=== PATIENT | male | born 1955 | race Caucasian/White ===

== ENCOUNTER 2017-01-26 12:15 | Inpatient (IN) ==
[2017-01-26 13:04] LABS: Basophils % 0.4 % (0.0-0.8); Eosinophils # 0.2 10*3/uL (0.0-0.87); Eosinophils % 1.5 % (0.00-10.9); Hematocrit 46.5 VOL% (42.0-52.0); Hemoglobin 16.1 GM/DL (14.0-18.0); Immature Granulocytes % 0.4 %; Immature Granulocytes Absolute 0.04 #; Lymphocytes # 3.6 10*3/uL (1.4-4.0); Lymphocytes % 32.5 % (21.2-54.2); Mean Corpuscular HGB Conc 34.6 GM/DL (32-36); Mean Corpuscular Hemoglobin 32 PG (27-34); Mean Corpuscular Volume 92.6 FL (87-102); Mean Platelet Volume 10.5 FL (9.6-12.0); Monocytes # 0.9 10*3/uL (0.11-0.8); Monocytes % 8.3 % (1.7-12.7); Neutrophils # 6.2 10*3/uL (1.4-7.4); Neutrophils % 56.9 % (38.7-73.9); Platelet Count 147 T/CUMM (130-400); Red Blood Count 5.02 MC/CUMM (3.8-5.5); Red Cell Distribution Width 13.7 % (9.3-17.3)
--- NOTE | 2017-01-26 13:12 | EKG Report ---
Stationary ECG Study [facility] Test Date: 01/26/2017 1:07:11 PM Pat Name: YULIYA POLLARD Department: Room: Gender: M Ware[employer] Order Picker: : 1955 Requested by: Crystal Mckinney Order Number: [id number] Reading MD: JACOB RIVAS Intervals [place] Rate: 71 P: 62 PA: 142 QRS: 43 QRSD: 89 T: 74 QT: 351 QTc: 374 Interpretive Statements SINUS RHYTHM Electronically Signed On 01-26-17 14:07:50 CDT by JACOB RIVAS [email or web address]
[2017-01-26 13:19] LABS: Albumin 3.4 G/DL (3.4-5.0); Calcium 8.6 MG/DL (8.5-10.1); Osmolality,Calculated 275.5 MOS/KG (273-304); Potassium 4.1 MMOL/L (3.5-5.1); Total Protein 7.2 G/DL (6.4-8.3)
[2017-01-26] MEDS ORDERED: ALBUTEROL/IPRATROPIUM 3 ML NEB RESP TX STA (13:30)
--- NOTE | 2017-01-26 13:30 | XRay Report ---
2 view chest January 26, 2017 Indication: Shortness of breath Comparison CT performed on May 24, 2014 and prior chest radiograph May 05, 2015 Findings: Cardiomediastinal contours are within normal limits. Chemotherapy port remains in satisfactory position. Lungs are clear bilaterally. No acute osseous abnormalities. Impression: No acute cardiopulmonary findings PROCEDURE INTERPRETED AT [facility] DEPARTMENT OF RADIOLOGY Final Report Signed by: Faisal Machuca
--- NOTE | 2017-01-26 15:13 | CT Report ---
CT chest pulmonary embolism January 26, 2017 at 1431 hours Indication: Chest pain, shortness of breath, history of lymphoma Comparison: None available Technique: Axial CT imaging of the chest is performed with intravenous contrast. Contrast dose is 80 cc of Omnipaque 350. Findings: Chest: No thrombus or other abnormality is identified in the pulmonary arteries or veins. The pulmonary vessel caliber is within normal limits. The heart and great vessels appear within normal limits. Marked increase in number and size of bilateral cervical, supraclavicular, axillary, mediastinal and hilar lymph nodes. Patchy consolidation developing within the posterior left lung base. Remaining lung parenchyma is well aerated. No effusion or pneumothorax is present. Visualized abdomen: Spleen is enlarged. Prominent retroperitoneal and mesenteric adenopathy is present throughout the upper abdomen. Impression: 1. No evidence of pulmonary embolism 2. Developing left basilar pneumonia 3. Marked adenopathy and splenomegaly, appearance highly concerning for lymphoma recurrence. This CT exam was performed using one or more the following dose reduction techniques: Automated exposure control, adjustment of the MA and/or KV according to patient size, or use of iterative reconstruction technique. PROCEDURE INTERPRETED AT [facility] DEPARTMENT OF RADIOLOGY Final Report Signed by: Faisal Machuca
[2017-01-26] MEDS ORDERED: LEVOFLOXACIN INJ 750 MG in PREMIX 1 EACH IV STA (15:52)
--- NOTE | 2017-01-26 16:07 | Emergency Department Note ---
Arrival - Arrival Chief Complaint: Upper Respiratory Stated Complaint: upper respiratory,congestion ED Nursing Triage Note: 4-WEEK HX OF NSAL KIOLATZD-[id number]-E/O MILD SOB OVER LAST FEW DAYS-A/OX3 NO RESP DISTRESS NOTED Mode of Arrival: Ambulatory Source: Patient Time Seen by Provider: 01/26/17 13:01 - History of Present Illness HPI Narrative: 61 y/o white male presents to the ER complaining of dyspnea, cough, and nasal congestion. Symptoms started four weeks ago. Reports fatigue and dyspnea with exertion. Patient has completed a Z-pack two weeks ago with little results. Past medical history significant for CLL- remission and hernia repair. Past medical history significant for Dr. De Santiago. Oncologist: Dr. Sauer. Onset (ago): week(s) (4) Severity: mild Allergies/Adverse Reactions: Allergies Allergy/AdvReac Type Severity Reaction Status Date / Time No Known Allergies Allergy Verified 05/05/15 10:01 Home Medications: Home Medications Medication Instructions Recorded Confirmed Type Gabapentin 300 mg PO TID 09/28/14 05/05/15 History Omeprazole 40 mg PO DAILY 09/28/14 05/05/15 History Oxycodone HCl/Acetaminophen 1 each PO Q6H PRN 09/28/14 05/05/15 History [Percocet 10-325 mg Tablet] Vitamin B Complex 1 each PO DAILY 09/28/14 05/05/15 History Fentanyl [Fentanyl 25 mcg/hr Patch] 25 mcg TRANSDERM Q3DAY PRN 09/29/14 History predniSONE TAB 20 mg PO DIRECTED 09/29/14 05/05/15 History Review of System - Review of System 12 point system: reviewed and no additional remarkable complaints except as stated - Review of System Constitutional: Present: other (faigue ) Head/Ears/Nose/Throat: Present: nasal drainage Respiratory: Present: cough Neurological: Present: headache Hematological/Lymphatic: Present: lymphadenopathy Medical,Surgical,& Family Hx - Medical History Neurology: No history of: Seizures Gastrointestinal: History of: GERD Hematology: History of: Hematologic Cancer (LYMPHATIC LEUKEMIA) - Surgical History Abdominal Surgeries: Patient denies: Abdominal Surgery - Family History Family History: Reports;: Family Cancer (MOTHER-OVARIAN, BROTHER MYLOMA) - Social History Smoking Status: Smoker, status unknown Exam Vital Signs: Vital Signs Temperature 98.6 F 01/26/17 13:03 Pulse Rate 77 09/02/17 14:05 Respiratory Rate 18 01/26/17 14:05 Blood Pressure 133/74 01/26/17 13:03 O2 Sat by Pulse Oximetry 95 01/26/17 14:05 - General General appearance: alert, in no apparent distress - ENT ENT exam: Present: normal oropharynx, mucous membranes moist, other (rhinorrhea ) - Neck Neck exam: Present: lymphadenopathy - Chest Chest inspection: Present: normal inspection - Respiratory Respiratory exam: Present: rhonchi (LLL) - Cardiovascular Cardiovascular exam: Present: regular rate, normal rhythm, normal heart sounds - Abdominal Exam Abdominal exam: Present: soft, normal bowel sounds. Absent: tenderness - Extremities Exam Extremities exam: Present: normal inspection, full ROM - Neurological Exam Neurological exam: Present: alert, oriented X3 - Psychiatric Psychiatric exam: Present: normal affect, normal mood - Skin Skin exam: Present: warm, dry Course Course Narrative: Levaquin 750mg IV given in ER. - Consultations Consultation #1: Dr. Us Time: 16:20 (Will admit to Dr. Us ) Results - Labs CBC & BMP: 01/26/17 12:51 01/26/17 12:51 Lab Results: I have reviewed the patients labs - Diagnostic Findings Procedure: CT - chest: image reviewed by me, report reviewed by me (1. no evidence of PE 2. developing left bvasilar pneumonia 3. marked adenopathy and splenomegaly, apperance highly concerning for lymphoma recurrence ), X-ray: image reviewed by me, report reviewed by me (CXR: no acute abnormality ) Disposition Clinical Impression: Pneumonia, Lymphadenopathy Case discussed with: patient Disposition: Disch To Home/Self Care Condition: Stable
[2017-01-26] MEDS ORDERED: ACETAMINOPHEN 325 MG TABLET PO PRN ×2 (16:31→18:41)
[2017-01-26] MEDS ORDERED: IBUPROFEN 600 MG TABLET PO PRN (16:31)
[2017-01-26] MEDS ORDERED: ONDANSETRON 4 MG/2 ML VIAL IV PRN ×2 (16:31→18:41)
[2017-01-26] MEDS: SODIUM CHLORIDE 0.9% 1,000 ML IV SCH (19:58)
[2017-01-26] MEDS: GABAPENTIN 600 MG TABLET PO SCH (20:11)
[2017-01-26] MEDS: DOCUSATE SODIUM 100 MG CAPSULE PO SCH (20:11)
[2017-01-26] MEDS ORDERED: DOCUSATE SODIUM 100 MG CAPSULE PO SCH (21:00)
[2017-01-27] MEDS: SODIUM CHLORIDE 0.9% 1,000 ML IV SCH ×3 (03:58→20:43)
[2017-01-27] MEDS: ALBUTEROL/IPRATROPIUM 3 ML NEB RESP TX PRN ×2 (04:19→11:38)
[2017-01-27 04:26] LABS: Basophils % 0.5 % (0.0-0.8); Eosinophils # 0.2 10*3/uL (0.0-0.87); Eosinophils % 2.8 % (0.00-10.9); Hematocrit 42.8 VOL% (42.0-52.0); Hemoglobin 14.3 GM/DL (14.0-18.0); Immature Granulocytes % 0.2 %; Immature Granulocytes Absolute 0.02 #; Lymphocytes % 36.6 % (21.2-54.2); Mean Corpuscular HGB Conc 33.4 GM/DL (32-36); Mean Corpuscular Hemoglobin 32 PG (27-34); Mean Corpuscular Volume 94.9 FL (87-102); Mean Platelet Volume 10.9 FL (9.6-12.0); Monocytes % 11.8 % (1.7-12.7); Neutrophils # 3.9 10*3/uL (1.4-7.4); Neutrophils % 48.1 % (38.7-73.9); Platelet Count 127 T/CUMM (130-400); Red Blood Count 4.51 MC/CUMM (3.8-5.5); Red Cell Distribution Width 13.8 % (9.3-17.3); White Blood Count 8.1 T/CUMM (4-12)
[2017-01-27 04:52] LABS: Magnesium 2.3 MG/DL (1.8-2.4); Potassium 3.8 MMOL/L (3.5-5.1)
[2017-01-27 04:55] LABS: Risk Ratio 4.97; VLDL CHOLESTEROL 24.2 MG/DL
[2017-01-27 05:49] LABS: Apearance,Urine CLEAR (Clear); Bilirubin,Urine Negative (Negative); Blood, Urine Negative (Negative); Glucose,Urine (UA) Negative (Negative); Ketones,Urine Negative (Negative); Nitrite,Urine Negative (Negative); Protein,Urine Negative; RBC,Urine <1 /HPF (0-4); Urine Color Yellow (Yellow); Urine Specific Gravity 1.014 (1.001-1.035); WBC,Urine <1 /HPF (0-6)
[2017-01-27] MEDS ORDERED: PANTOPRAZOLE 40 MG TABLET PO SCH (09:00)
[2017-01-27] MEDS ORDERED: ALPHA LIPOIC ACID 100 MG PO SCH (09:00)
[2017-01-27] MEDS: LEVOFLOXACIN INJ 750 MG in PREMIX 1 EACH IV SCH (09:16)
[2017-01-27] MEDS: DOCUSATE SODIUM 100 MG CAPSULE PO SCH ×2 (09:16→20:43)
[2017-01-27] MEDS: GABAPENTIN 600 MG TABLET PO SCH ×2 (09:16→20:43)
[2017-01-27] MEDS: PANTOPRAZOLE 40 MG TABLET PO SCH (09:17)
--- NOTE | 2017-01-27 10:49 | Oncology Progress Note ---
Oncology Subjective PN Interval history: Mr. Rodríguez is a 61-year-old man followed by Dr. Sauer for chronic lymphocytic leukemia initially diagnosed in 2012. He had an elevated CD38 level , unmutated IGV H, deletion of 11 q. and deletion of 14 Q. He was initially treated with Treanda plus Rituxan followed by Rituxan maintenance. The molecular studies performed suggested poor risk but the patient responded well to the treatment with Treanda and Rituxan. He was referred to [facility] for transplant evaluation but in mid 2015 he underwent a repeat bone marrow biopsy that showed 10% CLL cells with normal cytogenetics. He remained stable and was being observed without further plans for stem cell transplantation. He underwent PET scan on August 10 because of enlarging right groin lymph nodes but the PET scan did not show significant uptake. Dr. Sauer has been following him every 4 months and does indicate that the patient has neuropathy but he does not believe this is related to chemotherapy. Past medical history: CLL Thrombocytopenia Herpes zoster with complications, including postherpetic neuralgia. Medications at the time of the patient's last office visit included: Neurontin, omeprazole, Zofran, Percocet 5, prednisone 20 mg, Tussionex, multi vitamin B complex. Allergies: No known allergies Family history: No history of CLL. His mother had ovarian cancer and his brother had myeloma. Social history: He is a smoker and has undergone tobacco cessation counseling. Review of systems: Constitutional: Positive for fatigue but negative for persistent fever or night sweats. Pulmonary: Positive for cough but negative for pleuritic chest pain. Cardiovascular: No palpitations, chest pain or syncope. GI: No nausea or vomiting and no abdominal pain or tenderness : No dysuria or hematuria Neurologic: No seizures, convulsions or paralysis. Positive for neuropathy related to postherpetic neuralgia. Hematologic: No anemia or leukopenia, thrombocytopenia or petechiae. Musculoskeletal: Positive joint pain and stiffness. Physical examination: General: The patient appears somewhat acutely ill and also chronically ill. Eyes: Normal lids and conjunctivae. ENT: His oral mucosa and pharynx are normal. His trachea is midline and he has no neck masses. His hearing is normal. Neck: Thyroid is normal. See lymphatics. Pulmonary: Breath sounds are slightly coarse without rubs, rales or rhonchi. I cannot appreciate any rales presently. His chest moves symmetrically with respiration. Cardiovascular: Heart rhythm is regular without murmur, gallop or rub. There is no jugular venous distention, clubbing, cyanosis or edema. Abdomen: I cannot palpate his spleen. No ascites. No tenderness. Musculoskeletal: No focal muscle atrophy or bone or joint deformity. Neurologic: Cranial nerves II through XII are intact. The no focal neurologic deficits. Nodes: The patient has bilateral posterior and anterior cervical adenopathy as well as supraclavicular adenopathy and bulky axillary adenopathy. Skin: I see no significant skin rashes or lesions. I have reviewed the patient's CT chest and I am also examine his lymphadenopathy. Impression: Chronic lymphocytic leukemia that has been responding well to appropriate therapy. Although he has bulky adenopathy in the axillary regions as well as adenopathy in the cervical and supraclavicular area, I do not favor institution of any new treatment presently. I will defer this to Dr. Sauer. I realize he is been considered for marrow transplant in the past but there are multiple treatments available now I would not consider. Referring him for an autologous marrow transplant considering the fact that he is responded well. Thank you for consulting me. Exam - Constitutional Vitals: Period Temp Pulse Resp BP Sys/Agustin Pulse Ox Last 24 Hr 98.0 F-98.6 F 56-88 16-22 107-159/64-78 91-100 Results - Labs CBC & BMP: 01/27/17 03:03 01/27/17 03:03 Quality Measures - Stroke Symptom Onset Unknown: No
--- NOTE | 2017-01-27 11:20 | Family Practice History&Phys ---
Assessment and Plan (1) Left basilar pneumonia Status: Acute Assessment and plan: We will start on empiric antibiotics and treat appropriately. He denies any dyspnea has no bronchospasm noted. Current Visit: Yes (2) Possible recurrent lymphocytic leukemia Status: Acute Assessment and plan: We will ask oncology to evaluate findings on chest CT and abnormal lymphadenopathy. Current Visit: Yes (3) History of chronic lymphocytic leukemia Status: Chronic Assessment and plan: Patient has been treated since 2012 for lymphocytic leukemia which was felt to be in remission. Current Visit: Yes History of Present Illness Chief complaint: Cough with shortness of breath History of present illness: Mr. Rodríguez is a 61 year old male Patient states that he has had a nonproductive cough over the last 4-5 weeks. Apparently he has been treated on an outpatient basis with appropriate meds but symptoms have persisted. He presented to the emergency room initial chest x- ray was unremarkable. CT scan of the chest revealed marked adenopathy and splenomegaly. Radiologist interpreted is highly suspicious for recurrence of lymphoma. Patient is followed by Dr. Sauer for chronic lymphocytic leukemia. He was initially diagnosed in 2012 and was treated and was told that he is in remission. He is being followed regularly by Dr. Sauer apparently had a PET scan done in July. Family states that he has multiple enlarged hard nodes in his neck, axillary region, and inguinal region. These were confirmed on physical examination. The chest CT also revealed a left basilar pneumonia. In view of history we will admit for more aggressive evaluation and treatment. Will consult oncology for further evaluation. Home Medications Medication Instructions Recorded Confirmed Type Gabapentin 600 mg PO BID 09/28/14 01/26/17 History Omeprazole 40 mg PO DAILY 09/28/14 01/26/17 History Vitamin B Complex 1 each PO DAILY 09/28/14 01/26/17 History Alpha Lipoic Acid 100 mg PO DAILY 01/26/17 01/26/17 History Glucosamine 1,000 mg PO BID 01/26/17 01/26/17 History Allergies Allergy/AdvReac Type Severity Reaction Status Date / Time No Known Allergies Allergy Verified 05/05/15 10:01 Medical,Surgical,& Family Hx - Medical History Neurology: No history of: Seizures Gastrointestinal: History of: GERD Hematology: History of: Hematologic Cancer (LYMPHATIC LEUKEMIA) - Surgical History Cardiac Surgeries: Sugical HX of: Vascular Access Devices Abdominal Surgeries: Surgical HX of: Hernia Repair Patient denies: Abdominal Surgery - Family History Family History: Reports;: Family Cancer (MOTHER-OVARIAN, BROTHER MYLOMA) - Social History Smoking Status: Current every day smoker Have you smoked in the last 12 months: Yes Time spent discussing smoking cessation with patient: 3 to 10 minutes Frequency of Alcohol Use: None Type of Drug Use: None Marital Status: Lives With:: Spouse Functional capacity: independent ambulation Exam - Constitutional Vitals: Period Temp Pulse Resp BP Sys/Agustin Pulse Ox Last 24 Hr 98.0 F-98.6 F 56-88 16-22 107-159/64-78 91-100 General appearance: no acute distress - Head Head exam: Present: normal inspection - Eye Pupils: Present: FLORY - ENT ENT exam: Present: normal exam - Neck Neck exam: Present: lymphadenopathy (Multiple hard anterior and posterior cervical nodes) - Respiratory Respiratory exam: Present: clear to auscultation bilaterally - Cardiovascular Cardiovascular exam: Present: regular rate and rhythm - GI/Abdominal GI/Abdominal exam: Present: normal bowel sounds, other (Patient has enlarged firm nodes in both inguinal regions.) - Extremities Exam Extremities exam: Present: normal inspection - Back Exam Back exam: Present: normal inspection - Neurological Exam Neurological exam: Present: alert, oriented X3 - Psychiatric Psychiatric exam: Present: normal affect - Skin Skin exam: Present: other (Patient has enlarged nontender lymphadenopathy and axillary and inguinal region.) Results - Labs CBC & BMP: 01/27/17 03:03 01/27/17 03:03 Quality Measures - Stroke Symptom Onset Unknown: No
[2017-01-28 04:06] LABS: Basophils # 0.1 10*3/uL (0.0-0.2); Basophils % 0.6 % (0.0-0.8); Eosinophils # 0.2 10*3/uL (0.0-0.87); Eosinophils % 2.3 % (0.00-10.9); Hematocrit 42.1 VOL% (42.0-52.0); Hemoglobin 14.5 GM/DL (14.0-18.0); Immature Granulocytes % 0.5 %; Immature Granulocytes Absolute 0.04 #; Lymphocytes # 3.6 10*3/uL (1.4-4.0); Lymphocytes % 45.2 % (21.2-54.2); Mean Corpuscular HGB Conc 34.4 GM/DL (32-36); Mean Corpuscular Hemoglobin 32 PG (27-34); Mean Platelet Volume 10.7 FL (9.6-12.0); Monocytes # 0.2 10*3/uL (0.11-0.8); Monocytes % 2.4 % (1.7-12.7); Neutrophils # 3.9 10*3/uL (1.4-7.4); Platelet Count 141 T/CUMM (130-400); Red Blood Count 4.48 MC/CUMM (3.8-5.5); Red Cell Distribution Width 13.8 % (9.3-17.3)
[2017-01-28] MEDS: SODIUM CHLORIDE 0.9% 1,000 ML IV SCH ×3 (04:21→18:11)
[2017-01-28 04:30] LABS: Calcium 8.3 MG/DL (8.5-10.1); Osmolality,Calculated 284.8 MOS/KG (273-304)
[2017-01-28] MEDS: GABAPENTIN 600 MG TABLET PO SCH ×2 (09:06→20:35)
[2017-01-28] MEDS: PANTOPRAZOLE 40 MG TABLET PO SCH (09:06)
[2017-01-28] MEDS: LEVOFLOXACIN INJ 750 MG in PREMIX 1 EACH IV SCH (09:06)
[2017-01-28] MEDS: DOCUSATE SODIUM 100 MG CAPSULE PO SCH (09:06)
--- NOTE | 2017-01-28 10:42 | XRay Report ---
2 view chest January 28, 2017 at 0808 hours Indication: Cough Comparison CT performed on January 26, 2017 1440 hours Findings: Near complete clearing of the left basilar parenchymal density. Chemo-Port is unchanged in position. Slight hilar prominence corresponding with known adenopathy. No acute osseous abnormalities. Impression: Significantly improved left basilar consolidation PROCEDURE INTERPRETED AT [facility] DEPARTMENT OF RADIOLOGY Final Report Signed by: Faisal Machuca
[2017-01-28] MEDS: ALBUTEROL/IPRATROPIUM 3 ML NEB RESP TX PRN (10:50)
--- NOTE | 2017-01-28 12:15 | Family Practice Progress Note ---
Family Practice - PN: Subj Interval history: 01/28/17 -patient states she feels better today. States she is breathing better with less cough. A.m. lab studies are stable. Chest x-ray reveals significant improvement left basilar consolidation. He denies any new complaints. Still has some wheezing in bases worse on the left side but definitely improved. Remainder of examination is stable overall. Encourage patient to increase activity and will otherwise continue present treatment plan Exam (Progress Note) - Constitutional Vitals: Period Temp Pulse Resp BP Sys/Agustin Pulse Ox Last 24 Hr 97.4 F-98.5 F 60-74 16-20 109-140/60-77 92-94 Results - Labs CBC & BMP: 01/28/17 03:20 01/28/17 03:20 Assessment and Plan (1) Left basilar pneumonia Status: Acute Assessment and plan: We will start on empiric antibiotics and treat appropriately. He denies any dyspnea has no bronchospasm noted. Current Visit: Yes (2) Possible recurrent lymphocytic leukemia Status: Acute Assessment and plan: We will ask oncology to evaluate findings on chest CT and abnormal lymphadenopathy. Current Visit: Yes (3) History of chronic lymphocytic leukemia Status: Chronic Assessment and plan: Patient has been treated since 2012 for lymphocytic leukemia which was felt to be in remission. Current Visit: Yes Quality Measures - Stroke Symptom Onset Unknown: No
[2017-01-29] MEDS: DOCUSATE SODIUM 100 MG CAPSULE PO SCH ×3 (04:10→21:00)
[2017-01-29 05:39] LABS: Basophils # 0.1 10*3/uL (0.0-0.2); Basophils % 0.8 % (0.0-0.8); Eosinophils # 0.2 10*3/uL (0.0-0.87); Eosinophils % 3.1 % (0.00-10.9); Hematocrit 41.9 VOL% (42.0-52.0); Hemoglobin 14.3 GM/DL (14.0-18.0); Immature Granulocytes % 0.5 %; Immature Granulocytes Absolute 0.03 #; Lymphocytes # 2.6 10*3/uL (1.4-4.0); Lymphocytes % 43.5 % (21.2-54.2); Mean Corpuscular HGB Conc 34.1 GM/DL (32-36); Mean Corpuscular Hemoglobin 32 PG (27-34); Mean Corpuscular Volume 94.2 FL (87-102); Mean Platelet Volume 10.7 FL (9.6-12.0); Monocytes # 0.3 10*3/uL (0.11-0.8); Monocytes % 5.1 % (1.7-12.7); Neutrophils # 2.8 10*3/uL (1.4-7.4); Platelet Count 137 T/CUMM (130-400); Red Blood Count 4.45 MC/CUMM (3.8-5.5); Red Cell Distribution Width 13.5 % (9.3-17.3)
[2017-01-29 06:05] LABS: Calcium 7.9 MG/DL (8.5-10.1); Osmolality,Calculated 285.7 MOS/KG (273-304); Potassium 3.9 MMOL/L (3.5-5.1)
--- NOTE | 2017-01-29 08:03 | Oncology Progress Note ---
Assessment and Plan - Time spent with patient Time spent with patient: Greater than 30 minutes (1) Lymphadenopathy Status: Acute Current Visit: Yes (2) Left basilar pneumonia Status: Acute Current Visit: Yes (3) History of chronic lymphocytic leukemia Status: Chronic Current Visit: Yes Oncology Subjective PN Interval history: Mr. Rodríguez is a 61-year-old white male who I have been following now for the past year with a history of poor risk CLL who was initially treated starting in June 2012 with a six-month course of Treanda plus Rituxan by Dr. Darien Urbina. He then remained on maintenance Rituxan for the following 2 years. He has now been on observation only for 2 years. There was some consideration for a stem cell transplant but this was delayed due to his very good response to initial treatment. He is now in the hospital with what appears to be a left lower lobe pneumonia. On imaging showed worsening axillary lymphadenopathy. These are palpable on exam and have been palpable now for a few months. They have definitely grown some over the last few months since I last saw him in early November. We did a PET scan in July of this year that showed no FDG avidity throughout any lymph nodes. I had a lengthy discussion with him this morning about his disease status. There is no question that his lymph nodes are somewhat enlarged from previous but is not having any symptoms of these. These very well may go back down after his pneumonia is treated. I do not see any reason to initiate any kind of treatment at this time for his CLL. He already has an appointment to see me in approximately 4 weeks so I told him just to keep that appointment. We will keep a close watch on these lymph nodes and if they continue to grow we will have no choice but to treat him. I am considering re-challenging him with Treanda plus Rituxan since he responded so well initially. He will be an ideal candidate for Imbruvica once we get to that point. He is in agreement with watchful waiting at this point. I anticipate he will likely be on some type of treatment within the next few months. This may be 4 months or this may be 12 months. His CBC is completely normal and shows no evidence of CLL in his peripheral blood. His disease status is behaving more like SLL. There is nothing to add from a hematology standpoint at this point he can be discharged home once it is felt like his pneumonia is adequately treated. Exam - Constitutional Vitals: Period Temp Pulse Resp BP Sys/Agustin Pulse Ox Last 24 Hr 97.0 F-98.1 F 57-80 17-24 109-134/67-79 92-99 General appearance: normal weight, no acute distress - Head Head Exam: Present: normocephalic - ENT ENT exam: Present: normal exam, normal oropharynx - Neck Neck exam: Present: lymphadenopathy. Absent: thyromegaly - Respiratory Respiratory exam: Present: CTAB. Absent: wheezes - Cardiovascular Cardiovascular exam: Present: RRR. Absent: JVD, systolic murmur - GI/Abdominal GI/Abdominal exam: Present: soft. Absent: ascites, distended, mass - Neurological Exam Neurological exam: Present: alert, oriented X3 - Psychiatric Psychiatric exam: Present: normal affect, normal mood - Skin Skin exam: Present: warm, dry Results - Labs CBC & BMP: 01/29/17 04:43 01/29/17 04:43 Lab Results: I have reviewed the past 24 hour labs - Diagnostic Findings Procedure: CT - chest: report reviewed by me, image reviewed by me Quality Measures - Stroke Symptom Onset Unknown: No
--- NOTE | 2017-01-29 08:07 | Family Practice Progress Note ---
Family Practice - PN: Subj Interval history: Patient is a 61-year-old white male was admitted to the emergency room with left lower lobe pneumonia. Patient has a history of lymphoma and is followed by Dr. Duran Eid. Patient states she has not had any fever or shaking chills. Patient states he just had shortness of breath which was quite severe. He states he feels much better this morning. Exam (Progress Note) - Constitutional Vitals: Period Temp Pulse Resp BP Sys/Agustin Pulse Ox Last 24 Hr 97.0 F-98.1 F 57-80 17-24 109-134/67-79 92-99 Exam: Objectively well-developed gentleman who is awake alert sitting up on side of bed and has finished his breakfast. He denies any chest pain or shortness of breath. Cardiovascular: Heart rates regular without murmurs or gallops. Respiratory: Lungs clear to auscultation bilaterally. Abdomen: Abdomen soft and nontender to palpation. Results - Labs CBC & BMP: 01/29/17 04:43 01/29/17 04:43 Lab Results: I have reviewed the past 24 hour labs Assessment and Plan (1) Pneumonia Status: Acute Assessment and plan: 01/29/2017: We will continue present medications. Current Visit: Yes Quality Measures - Stroke Symptom Onset Unknown: No
[2017-01-29] MEDS: PANTOPRAZOLE 40 MG TABLET PO SCH (08:58)
[2017-01-29] MEDS: GABAPENTIN 600 MG TABLET PO SCH ×2 (08:58→20:54)
[2017-01-29] MEDS: LEVOFLOXACIN INJ 750 MG in PREMIX 1 EACH IV SCH (09:01)
--- NOTE | 2017-01-30 07:45 | Discharge Summary ---
Hospital Course - Hospital Course Hospital Course: Patient is a 61 white male who presented to the emergency room day of admission with increasing shortness of breath. Patient was found to have left basilar pneumonia. Cultures were obtained which remained negative. Patient was begun on appropriate antibiotic therapy and has shown prominent improvement symptomatically since admission. He was seen in consultation by oncology did not feel he needed any further treatment for his CLL. Patient's shortness of breath is completely resolved as has his chest pain. He is ready for discharge today. He will be discharged home on Levaquin and I will check him back in the office in 2 weeks time and repeat chest x-ray on return to clinic. Diagnosis - Discharge Diagnosis (1) Pneumonia Status: Acute Discharge Plan - Discharge Data Disposition: Disch To Home/Self Care Condition at Discharge: Stable Discharge Diet: advance to your usual diet Activity: resume usual activities as tolerated Hygiene: no restrictions Weight Bearing at Discharge: full weight bearing Driving: no restrictions Contact your physician if you experience:: fever over 101 - Discharge Medications New Albuterol Inhaler [Proventil Inhaler] 2 puff INH Q4H PRN #1 inhaler PRN Reason: Shortness Of Breath/Wheezing Levofloxacin Tab [Levaquin Tab] 500 mg PO DAILY #7 tablet Continue Vitamin B Complex 1 each PO DAILY Omeprazole 40 mg PO DAILY Gabapentin 600 mg PO BID Glucosamine 1,000 mg PO BID Alpha Lipoic Acid 100 mg PO DAILY - Follow Up or Referral - Forms/Instructions Exam - Constitutional Vitals: Period Temp Pulse Resp BP Sys/Agustin Pulse Ox Last 24 Hr 97.1 F-98.3 F 62-106 18-20 106-157/62-76 92-96 Exam: Objectively well-developed gentleman who is awake alert sitting up on side of bed and is eating his breakfast. He denies any chest pain or shortness of breath. Cardiovascular: Heart rates regular without murmurs or gallops. Respiratory: Lungs clear to auscultation bilaterally. Abdomen: Abdomen soft and nontender to palpation. Discharge Results Procedures and tests throughout hospitalization: Pending Orders 01/26/17 14:18 Blood Culture Stat Labs on day of discharge: Preliminary micro results at discharge 01/26/17 14:18 Blood Culture - Preliminary Blood No growth at 3 days 01/26/17 12:51 Blood Culture - Preliminary Blood No growth at 3 days DS: Provider Date of admission: 01/26/17 16:31 Primary care physician: . No PCP Attending physician on admission: Rustam Us DO Consults: 01/26/17 16:31 Consult to Case Mgmt/Social Srvs [CONS] Routine Reason for Case Mgmt/Social Srvs: Discharge Planning 01/26/17 16:33 Consult to Physician [CONS] Routine Comment: Consulting Provider: Isaías Sauer 01/26/17 17:42 Consult to Physician [CONS] Routine Comment: Consulting Provider: Person Notified: dr. [email or web address] Date Notified: 01/26/17 Time Notified: 17:40 01/27/17 09:51 Consult to Physician [CONS] Routine Comment: Recurrent lymphoma Consulting Provider: Isaías Sauer Person Notified: [email or web address] Date Notified: 01/29/17 Time Notified: 10:50 Discharging clinician: Nick De Santiago MD Expected date of discharge: 01/30/17
[2017-01-30] MEDS: GABAPENTIN 600 MG TABLET PO SCH (08:50)
[2017-01-30] MEDS: LEVOFLOXACIN INJ 750 MG in PREMIX 1 EACH IV SCH (08:50)
[2017-01-30] MEDS: DOCUSATE SODIUM 100 MG CAPSULE PO SCH (08:56)
[2017-01-30] MEDS: PANTOPRAZOLE 40 MG TABLET PO SCH (10:39)
[2017-01-30 11:48] VITALS: BP 106/74
== END 2017-01-30 11:30 | disposition home or self-care (01) | DRG 194 ==
LOC: N.ED 12:15 → N.EDINP 16:31 → N.2E 16:59
PROVIDERS: ADMIT Family Medicine; ATTEND Family Medicine